=== PATIENT | female | born 1955 | race Caucasian/White ===

== ENCOUNTER 2017-09-04 05:55 | Observation (INO) | payer OTHER ==
[~2017-09-04] VITALS: Ht 167.6 cm; Wt 70.3 kg
--- OUTSIDE RECORDS SUMMARY | ~2017-09-04 | XMS | Clinical Summary ---
Demographics + + + | Address | [address] | | | [place] [address] | + + + | Home Phone | | + + + | Preferred Language | Unknown | + + + | Marital Status | | + + + | Episcopal Affiliation | Unknown | + + + | Race | White | + + + | Ethnic Group | or | + + + Author + + + | Author | NON REVENUE LOCATIONS | + + + | Organization | NON REVENUE LOCATIONS | + + + | Address | Unknown | + + + | Phone | Unavailable | + + + Support + + +---------+ + | Name | Relationship | Address | Phone | + + +---------+ + | Deon Workman | ECON | Unknown | | + + +---------+ + Care Team Providers + +------+ + | Care Account Management Specialist Name | Role | Phone | + +------+ + PP | Unavailable | + +------+ + Source Comments SHANNAN is fully live on both [facility] and [facility] Allergies + + + + + + | Active Allergy | Reactions | Severity | Noted | Comments | | | | | Date | | + + + + + + | Codeine | Hives, Edema | Medium | 06/08/20 | | | | | | 10 | | + + + + + + Current Medications + + +--------+---------+------+------+-------+ | Prescription | Sig. | Disp. | Refills | Star | End | Statu | | | | | | t | Date | s | | | | | | Date | | | + + +--------+---------+------+------+-------+ | triamcinolone | by Topical route | 15 g | 0 | 01/1 | | Activ | | acetonide 0.5 % | three times daily. | | | 9/20 | | e | | Topical Cream | Apply thin film to | | | 11 | | | | | affected areas. | | | | | | + + +--------+---------+------+------+-------+ Active Problems Not on file Family History + + +------+ + | Medical History | Relation | Name | Comments | + + +------+ + | Arthritis | Sister | | Osteo (bad | + + +------+ + + +------+ + + | Relation | Name | Status | Comments | + +------+ + + | Father | | | arthritis | | | | (Age | | | | | 70) | | + +------+ + + | Sister | | | | + +------+ + + Social History + +-------+ +--------+------+ | Tobacco Use | Types | Packs/Day | Years | Date | | | | | Used | | + +-------+ +--------+------+ | Never Smoker | | | | | + +-------+ +--------+------+ + +---+---+---+ | Smokeless Tobacco: | | | | | Never Used | | | | + +---+---+---+ + + +---------+ + | Alcohol Use | Drinks/We | oz/Week | Comments | | | ek | | | + + +---------+ + | Yes | | | 1 glass a wine a night | + + +---------+ + + + + | Sex Assigned at | Date Recorded | | | | + + + | Not on file | | + + + Last Filed Vital Signs + + + + | Vital Sign | Reading | Time Taken | + + + + | Blood Pressure | 118/80 | 07/18/2010 11:41 AM PST | + + + + | Pulse | 72 | 07/18/2010 11:41 AM PST | + + + + | Temperature | 37.2 C (99 F) | 07/18/2010 11:41 AM PST | + + + + | Respiratory Rate | 16 | 06/19/2010 9:23 AM PST | + + + + | Oxygen Saturation | - | - | + + + + | Inhaled Oxygen | - | - | | Concentration | | | + + + + | Weight | 71.2 kg (157 lb) | 07/18/2010 11:41 AM PST | + + + + | Height | 170.2 cm (5' 7") | 06/19/2010 9:23 AM PST | + + + + | Body Mass Index | 24.59 | 07/18/2010 11:41 AM PST | + + + + Plan of Treatment + + + + + | Health Maintenance | Due Date | Last Done | Comments | + + + + + | CERVICAL CYTOLOGY | | | | | (PAP SMEAR) | 6 | | | + + + + + | MAMMOGRAM | | | | | | 6 | | | + + + + + | COLONOSCOPY | | | | | | 1 | | | + + + + + | CHOLESTEROL | | 06/08/2010 | | | SCREENING | 5 | | | + + + + + | INFLUENZA VACCINE | | | | | (FLU SHOT) | 7 | | | + + + + + Results Not on filefrom Last 3 Months
[~2017-09-04 05:55] MED LIST: DILAUDID4 MG PO; ESTRACE42.5 GM VAGINAL; GLUCOPHAGE XR500 MG PO; GLUCOPHAGE500 MG PO; MOTRIN IB200 MG PO; SENNA-DOCUSATE1 EAC1 PO; SUDAFED 12 HOU120 MG PO; SUDOGEST30 MG PO; VITAMIN D2000 UNI1 PO
--- NOTE | 2017-09-04 11:10 | NUR ---
09/04/17 1110 Yasemin Marie 1100-PATIENT ARRIVED TO PACU ON 8L MASK O2 SAT 100% PATIENT REACTIVE TO VOICE. DRESSING TO THROAT CDI. 1107-PATIENT ON 6L MASK O2 SAT 100% PATIENT AROUSES TO VERBAL STIMULI WHEN ASKED IF COMFORTABLE REPORTS "YES" WITH HEAD NOD.
--- NOTE | 2017-09-04 13:00 | NUR ---
PATIENT ARRIVED TO MS UNIT. DROWSY, EASILY AROU[place]ALE. NO C/O PAIN. DRESSING DRY AND INTACT. REPORT RECIEVED FROM PACU NURSE. WATER PITCHER FILLED.
--- NOTE | 2017-09-04 13:50 | NUR ---
PATIENT UP TO BATHROOM WITH ASSIST. VERY UNSTEADY AT THIS TIME, STATES SHE FEELS A LITTLE DIZZY WHEN SHE SAT UP. C/O MILD PAIN WHEN SHE FIRST SAT UP, "I CAN FEEL IT NOW, BUT I DON'T NEED ANYTHING." PAIN IS GONE NOW THAT SHE IS BACK RESTING IN BED. STATES SHE WOULD LIKE TO TAKE A NAP. HER SISTER LEFT THE ROOM BUT WILL BE BACK IN ABOUT AN HOUR. PATIENT TOLERATED LITTLE SIPS OF WATER. NO C/O NAUSEA AT THIS TIME. SHE DID RECIEVE PHENERGAN IN PACU. VS OBTAINED. PATIENT DENIES FURTHER NEEDS. CALL LIGHT IN REACH. DRESSING TO NECK IS A MEPILEX WHICH IS C/D/I. NO HEMATOMA FORMATION AT THIS TIME. NO C/O DYSPNEA. TRACH SET AT BEDSIDE.
--- NOTE | 2017-09-04 14:39 | NUR ---
PT IS RESTING IN BED WITH EYES CLOSED, RESPIRATIONS EVEN. NURSE RONI TOOK PT VITALS
--- NOTE | 2017-09-04 15:03 | NUR ---
PATIENT RESTING QUIETLY IN BED. NO DYSPNEA, NO PAIN OR NAUSEA. VS OBTAINED. PATIENT DENIES NEEDS. SCDS IN PLACE. IVF INFUSING W/O DIFFICULTY. WATER PITCHER REFILLED. MEPILEX STILL C/D/I. NO HEMATOMA NOTED. CALL LIGHT IN REACH. STILL DROWSY, BUT EASILY AROUSABLE.
--- NOTE | 2017-09-04 15:28 | NUR ---
ASSISTED PATIENT TO BATHROOM. VOIDED. BACK TO BED. DENIES PAIN. DRESSING STILL C/D/I. NO HEMATOMA NOTED. PATIENT EATING A JELLO. DENIES FURTHER NEEDS. CALL LIGHT IN REACH.
--- NOTE | 2017-09-04 17:28 | NUR ---
PATIENT UP TO BATHROOM WITH ASSIST. VOIDED. BACK TO BED. RATES PAIN 4/10, STATES IT IS INCISIONAL PAIN. 1 TAB PERCOCET ADMINISTERED. WILL ADMINISTER IBUPROFEN AFTER DINNER IF NEEDED. MEPILEX ON NECK IS C/D/I. STERISTRIPS UNDERNEATH A LITTLE BLOODY BUT THE DRAINAGE HAS NOT INCREASED SINCE SHE HAS BEEN HERE ON [facility]. VS OBTAINED. DINNER ORDERED. PATIENT DENIES NAUSEA AT THIS TIME. WATER PITCHER FILLED. DENIES FURTHER NEEDS. CALL LIGHT IN REACH.
--- NOTE | 2017-09-04 17:39 | NUR ---
PATIENT UP TO BATHROOM W/ 1 PERSON ASSIST. PATIENT C/O PAIN 4/10, PERCOCET ADMINISTERED. NO C/O OF NAUSEA. DRESSING IS CLEAN, DRY, INTACT. NO SHORTNESS OF BREATH, O2 SATS MAINTAINING IN MID TO HIGH 90'S ON ROOM AIR. DINNER ORDER PUT IN, PATIENT IS RESTING IN BED. CALL LIGHT IN REACH.
--- NOTE | 2017-09-04 17:50 | OR ---
[facility] [address] [facility] [place], [place] [address] Signed DATE OF OPERATION: 09/04/2017 SURGEON: Tamra Ann MD PREOPERATIVE DIAGNOSES: 1. 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 2. Right submandibular adenopathy. POSTOPERATIVE DIAGNOSES: 1. Follicular lesion of right thyroid lobe without papillary features or capsular invasion. Final pathology pending. 2. Right submandibular gland hypertrophy. PROCEDURES: 1. Right total thyroid lobectomy with isthmusectomy. 2. Right submandibular gland partial excision (separate incision). ANESTHESIA: General endotracheal. ANESTHESIOLOGIST: Angley Rey CRNA. INDICATION: This 62-year-old white woman is a patient of Dr. Rafat Ham. She was seen about a year ago with right thyroid nodule, which was asymptomatic. Fine-needle aspiration biopsy was undertaken at that time showing possible Hurthle cells. The patient was disinclined to operation without a definitive diagnosis. Repeat ultrasound was recommended. She more recently saw me with a right submandibular area enlargement treated by antibiotics. She had no stone in the submandibular gland duct and the swelling that she had receded quite markedly, though she still has a firm mass in the area approximately 2.5 cm in size. Her ultrasound was repeated recently showing the right thyroid lobe nodule to have increased to 22 mm in size from 20 mm and a fine-needle aspiration biopsy by me of the right submandibular mass showed a nondiagnostic cytology though mention was made of possible thyroid follicle cells. Obviously, this would be suggestive of possible primary thyroid cancer with metastatic disease to the right submandibular lymph node chain. Electronically Signed By: TAMRA ANN MD 09/04/17 1750 PATIENT NAME: LUANA BENITES OPERATIVE REPORT DATE OF : 57 REPORT #: [id number] PHYSICIAN: TAMRA ANN MD PCP: RAFAT HAM DO REPORT IS CONFIDENTIAL AND NOT TO BE RELEASED WITHOUT AUTHORIZATION [facility] [address] [place], [place] [address] Signed I have recommended right thyroid lobectomy, possible total thyroidectomy depending on frozen pathology as well as excision of better characterization of the right submandibular presumed lymph node or mass. The patient and her sister who attends to her understood the risks of bleeding, infection, recurrent or external laryngeal nerve injury, submandibular complications including lingual nerve injury or marginal mandibular branch of facial nerve injury. She definitely wants the submandibular mass to be removed as it is persistently uncomfortable and persistently present. Understanding all this, she wished to proceed. FINDINGS: The thyroid gland itself was of normal size. The nodule within the center portion was firm and rubbery. Total right thyroid lobectomy was accomplished with meticulous care including isthmusectomy. The mass within the central portion of the right lobe was incised by me after excision showing somewhat of a necrotic center. Frozen pathology by Dr. Avila Hancock showed the lesion to be a "follicular lesion" with no evidence of papillary structures and no sign of capsular invasion on initial evaluation. It is understood that final pathology is pending. As regard to the right submandibular lymph node, it was more likely submandibular gland itself. Meticulous care was taken in excising it and final pathology is pending. DESCRIPTION OF PROCEDURE: The patient was brought to the operating room, given a general endotracheal anesthetic. A shoulder roll was placed. The arms were placed at the side. position was maintained. Slight neck extension was noted. The neck and upper torso were prepared with a chlorhexidine solution and draped sterilely. A marking pen was used to shana natural skin lines of the anterior neck. Incision was made in a natural skin line with a #15 blade and dissection carried through the dermis sharply. Electrocautery was used for hemostasis. Superior and inferior flaps were developed. With meticulous care using blunt and electrocautery dissection. Gelpi retractors were placed and the midline strap muscles were incised longitudinally them at the midline. Dissection was undertaken on the right side using sharp and blunt dissection revealing the underlying thyroid lobe. The thyroid gland itself appeared of normal size. The palpable mass in the center portion of the right lobe was not hard, and there was no sign of regional adenopathy that could be told. Palpation in the superior aspect of the flap did not easily reach to the level of the mass in the submandibular area and further dissection in that area was deemed inadvisable. The superior pole of thyroid gland was bluntly exposed and individual ligation of superior polar vessels undertaken with 4-0 silk ties. The middle thyroidal veins were Electronically Signed By: TAMRA ANN MD 09/04/17 0758 PATIENT NAME: LUANA BENITES OPERATIVE REPORT DATE OF : 57 REPORT #: [id number] PHYSICIAN: TAMRA ANN MD PCP: RAFAT HAM DO REPORT IS CONFIDENTIAL AND NOT TO BE RELEASED WITHOUT AUTHORIZATION [address] [address] Signed similarly divided laterally and inferiorly as well. With meticulous care, the thyroid was rotated towards the midline with special attention to the posterior elements including the parathyroid glands, which were identified as well as recurrent nerve similarly identified. Where small vessels were located in the region of the recurrent nerve as it entered through the larynx, small clips were used in lieu of other methods for hemostasis. Ultimately, the thyroid lobe was completely freed from the posterior elements and the pretracheal space from the isthmus itself. Hemostats were applied to the isthmus on the left side and the parenchyma was divided. A 3-0 silk sutures were used to secure the thyroid parenchyma. Photographs were taken throughout. The specimen was bivalved by me and the nodule in question appeared to have necrosis in the center portion. This sent for frozen pathology and frozen pathology demonstrated a follicular lesion of the thyroid with no evidence of papillary elements and no obvious invasion of the capsule itself. Irrigation was undertaken in the area and hemostasis assured. Some Silvano hemostatic agent was applied to the posterior aspect where the vessels had been divided. The midline strap muscles were reapproximated with interrupted 2-0 Vicryl as was the platysmal layer and skin closed with a running subcuticular 3-0 Vicryl. The patient's head was turned slightly to the left. A natural skin crease directly over the submandibular area with palpable presumed lymph node was located, was marked and a small incision made in the area. Dissection was carried through the subcutaneous tissue sharply and the platysmal layers, which are much thicker in this area were divided longitudinally exposing the deeper fascia of the neck. Palpation of the submandibular mass was undertaken and using primarily blunt dissection, it was ultimately encountered. Rather than being a lymph node, it appeared more likely actually to be submandibular gland itself. Meticulous care was taken to stay on the capsule of the glandular lesion and it was dissected free quite typical of formal submandibular gland excision. A dominant arterial vessel was noted in the lateral aspect, which was secured with 4-0 silk ties and ultimately the mass was excised entirely. It measured approximately 3 cm or so in length and 2 cm in width. The depth of the wound was completely free of any offending mass. Irrigation was undertaken. Hemostasis assured. The platysmal layers were reapproximated with interrupted 2-0 Vicryl and the skin closed with running subcuticular 3-0 Vicryl. Steri-Strips were applied to both wounds. The patient was ultimately extubated and transferred to recovery room in good condition having suffered no complication. Sponge, needle, and instrument counts were reported as correct x3. Tamra Ann MD Electronically Signed By: TAMRA ANN MD 09/04/17 1750 PATIENT NAME: LUANA BENITES OPERATIVE REPORT DATE OF : 57 REPORT #: [id number] PHYSICIAN: TAMRA ANN MD PCP: RAFAT HAM DO REPORT IS CONFIDENTIAL AND NOT TO BE RELEASED WITHOUT AUTHORIZATION [address] [address] Signed MARK/[email or web address] /[id number] cc: Rafat Ham DO Copies: RAFAT HAM DO ~ Electronically Signed By: TAMRA ANN MD 09/04/17 1750 PATIENT NAME: LUANA BENITES KATIE OPERATIVE REPORT DATE OF : 57 REPORT #: [id number] PHYSICIAN: TAMRA ANN MD PCP: RAFAT HAM DO REPORT IS CONFIDENTIAL AND NOT TO BE RELEASED WITHOUT AUTHORIZATION
--- NOTE | 2017-09-04 18:00 | NUR ---
DR. ANN IN TO SEE PATIENT.
--- NOTE | 2017-09-04 19:00 | NUR ---
BEDSIDE REPORT RECEIVED FROM JACQUELINE TAMAYO. PT AWAKE, HOB ELEVATED. INCISION CLEAN DRY AND INTACT. PT 97% ON 1L OXYGEN, REQUESTING TO WEAR OXYGEN AT THIS TIME, DENIES SOB. PT RATES PAIN 0/10. SCDS ON. CALL LIGHT IN REACH.
--- NOTE | 2017-09-04 19:51 | NUR ---
ROUNDED CHARGE. PATIENT IS RESTING IN BED. PATIENT DENIES ANY COMMENTS, QUESTIONS, OR CONCERNS. NO NEEDS NOTED. CALL LIGHT IN REACH.
--- NOTE | 2017-09-04 20:02 | NUR ---
VITALS AND I&OS DONE AND CHARTED. BEDSIDE TABLE AND CALL LIGHT WITHIN REACH. FRESH WATER GIVEN. PT NEEDS NOTHING ELSE AT THIS TIME.
--- NOTE | 2017-09-04 21:30 | NUR ---
PT ASSESSMENT COMPLETE. INCISION CLEAN DRY AND INTACT, NO HEMATOMA NOTED. PT RATES PAIN 5/10 AT INCISION SITE WITH SPEAKING, ADMINISTERED PRN PERCOCET 1 TAB. SBA TO RESTROOM FOR 600 ML VOID. BOWEL TONES ACTIVE. PT DENIES NAUSEA, DENIES ITCHING. CSM INTACT BUE, BLE. SCDS ON. IV WNL SALINE LOCKED. CALL LIGHT IN REACH, LIGHTS OFF IN ROOM. DOOR SHUT PER PT REQUEST.
--- NOTE | 2017-09-04 22:53 | NUR ---
GOT PT A WARM BLANKET AND SHUT HER DOOR. PT NEEDS NOTHING ELSE AT THIS TIME. BEDSIDE TABLE AND CALL LIGHT WITHIN REACH.
--- NOTE | 2017-09-04 23:39 | NUR ---
HELPED PT GO TO THE BATHROOM AND BACK TO BED. BEDSIDE TABLE AND CALL LIGHT WITHIN REACH. PT NEEDS NOTHING ELSE AT THIS TIME.
--- NOTE | 2017-09-05 00:13 | NUR ---
CHECKED ON PT, PT SLEEPING, AWAKENS TO DOOR OPENING, RATES PAIN 4/10 AT INCISION. DRINKING SIPS OF WATER. SPO2 99% ON 2L OXYGEN BY NC PER RT ADMINISTRATION. PT HAS NO REQUESTS AT THIS TIME, WOULD LIKE WOKEN UP FOR PAIN MEDICATION, CALL LIGHT IN REACH, LIGHTS OFF IN ROOM.
--- NOTE | 2017-09-05 02:04 | NUR ---
ADMINISTERED PRN PERCOCET, MOTRIN FOR 6/10 REPORTED PAIN AT INCISION, TIGHTNESS AND SORE THROAT. PT 99% ON 2L OXYGEN. PT CONTINUES TO REQUEST OXYGEN DESPITE EDUCATION. HOB IS ELEVATED. INCISION CLEAN DRY AND INTACT, NO BRUISING NOTED. SBA TO RESTROOM FOR VOID. PT GIVEN ICE WATER, BACK IN BED, SCDS ON. LIGHTS OFF IN ROOM, CALL LIGHT IN REACH.
--- NOTE | 2017-09-05 02:08 | NUR ---
VITALS DONE AND CHARTED. BEDSIDE TABLE AND CALL LIGHT WITHIN REACH.
--- NOTE | 2017-09-05 04:44 | NUR ---
PT APPEARS TO BE SLEEPING, EYES CLOSED, VISIBLE CHEST RISE, LIGHTS OFF IN ROOM.
--- NOTE | 2017-09-05 05:18 | NUR ---
PT SLEPT WELL THROUGHOUT SHIFT. PAIN WELL CONTROLLED WITH PRN PERCOCET AND IBUPROFEN. INCISION SITE CLEAN DRY AND INTACT WITH NO BRUISING NOTED. PT SATURATING WELL ON ROOM AIR, REQUESTING TO WEAR 2L OXYGEN FOR COMFORT W SLEEP PER RT. HOB ELEVATED, SCDS ON THROUGHOUT SHIFT.
--- NOTE | 2017-09-05 05:42 | NUR ---
HELPED PT TO THE BATHROOM. VITALS DONE AND CHARTED.
--- NOTE | 2017-09-05 05:45 | NUR ---
PT RATES PAIN 6/10 AT THIS TIME, ADMINISTERED PRN PERCOCET X 1 TAB. PT GIVEN JELLO, PUDDING TO TAKE WITH PAIN PILL. SBA TO RESTROOM FOR VOID. BACK IN BED, SCDS ON, CONTINUOUS PULSE OX ON. PT ON ROOM AIR, SPO2 97%. INCISIONS CLEAN DRY AND INTACT, NO BRUISING NOTED. REFILLED ICE WATER, CALL LIGHT IN REACH, BREAKFAST ORDER TAKEN AT THIS TIME.
--- NOTE | 2017-09-05 07:23 | NUR ---
PT GIVEN FRESH ICE WATER AND A CUP OF HOT WATER FOR TEA. PT HAS NO OTHER REQUESTS AT THIS TIME. INFORMED PT TO CALL IF SHE THINKS OF ANYTHING. CALL LIGHT IS IN REACH.
--- NOTE | 2017-09-05 07:30 | NUR ---
REPORT RECEIVED FROM LEONIDAS PHILLIPS, PATIENT IS SITTING UP IN BED SIPPING ON SOME TEA. PATIENT DENIES ANY TROUBLE WITH SHORTNESS OF BREATH OR SWALLOWING AT THIS TIME. PATIENTS INCISION X2 TO HER NECK INTACT WITH STERI STRIPS.
--- NOTE | 2017-09-05 09:01 | NUR ---
PATIENT HAS NO C/O PAIN OR TROUBLE WITH SWALLOWING AT THIS TIME. SHE REMAINS ON RA. SHE HAS NO QUESTIONS OR CONCERNS. WATER FILLED UP FOR HER AND SHE FINISHED HER BREAKFAST WITH A LITTLE TROUBLE WITH HER EGGS.
--- NOTE | 2017-09-05 09:35 | NUR ---
DOCTOR MARISSA IN TO SEE THE PATIENT AT THIS TIME, PATIENT WILL BE D/C TO HOME TODAY. SHOWER IN THE AM.
[2017-09-05] MEDS ORDERED: OXYCODON-ACETA1 EAC2 PO (09:40)
[2017-09-05] MEDS ORDERED: MOTRIN IB200 MG PO (09:41)
[2017-09-05] MEDS ORDERED: SUDOGEST30 MG PO (09:58)
--- NOTE | 2017-09-05 09:58 | NUR ---
PT COMPLAINING OF 5/10 PAIN AT SURGICAL SITE. ADMINISTERED PRN PERCOCET. REFILLED ICE WATER. TOILETING OFFERED. PT AMBULATED TO TOILET WITH STAND BY ASSIST. TOILETED INDEPENDENTLY. PT AMBULATED BACK TO BED. CALL LIGHT IN REACH.
[2017-09-05] MEDS ORDERED: DAILY VALUE1 EACH PO (10:00)
[2017-09-05] MEDS ORDERED: BENADRYL25 MG PO (10:01)
[2017-09-05] MEDS ORDERED: PROBIOTIC1 EAC1 PO (10:01)
[2017-09-05] MEDS ORDERED: COLACE100 MG PO (10:21)
--- NOTE | 2017-09-05 10:28 | NUR ---
VS AND I&O'S TAKEN AND DOCUMENTED. PT STATES SHE HAS NO NEEDS AT THIS TIME. INFORMED PT TO CALL IF SHE THINKS OF ANYTHING. CALL LIGHT IS IN REACH.
--- NOTE | 2017-09-05 10:33 | NUR ---
PATIENT REQUESTING A STOOL SOFTNER AT THIS TIME, DOCTOR MARISSA CALLED AND JACKIE ORDERED 100MG FOR NOW AND THEN A SCRIPT WRITTEN FOR HOME. D/C PAPERS UPDATED.
[2017-09-05] MEDS ORDERED: MIRALAX17 GM PO (11:14)
--- NOTE | 2017-09-05 11:30 | NUR ---
PATIENT GIVEN D/C INSTRUCTIONS QUESTIONS ANSWERED AT THIS TIMEM, SCRIPTS GIVEN TO THE PATIENT AND SHE WAS WHEELED OUT WITH HER SISTER.
[2017-10-29] MEDS ORDERED: SYNTHROID100 MCG PO (11:26)
== END 2017-09-05 11:30 | disposition home or self-care (01) ==
LOC: DS 05:55 → MS 11:35 → DS 12:59 → MS 12:59
PROVIDERS: ADMIT Surgery
PROC: 0GTH0ZZ Resection of Right Thyroid Gland Lobe, Open Approach (ICD-10-PCS; principal; 2017-09-04 06:45)
PROC: 0CBG0ZZ Excision of Right Submaxillary Gland, Open Approach (ICD-10-PCS; 2017-09-04 06:45)
DX: C73 Malignant neoplasm of thyroid gland (principal); K11.23 Chronic sialoadenitis; Z79.899 Other long term (current) drug therapy; Z86.19 Personal history of other infectious and parasitic diseases; Z88.5 Allergy status to narcotic agent; Z88.8 Allergy status to other drugs, medicaments and biological substances
CPT/HCPCS: 00320; 94762; 96374; 96376; G0378; J0690; J1100; J1885; J2250; J2405; J2550; J2704; J3010; J7120

== ENCOUNTER 2017-10-28 05:55 | Observation (INO) | payer OTHER ==
[~2017-10-28] VITALS: Ht 167.6 cm; Wt 69.0 kg
--- OUTSIDE RECORDS SUMMARY | ~2017-10-28 | XMS | Clinical Summary ---
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
[~2017-10-28 05:55] MED LIST changes: +BENADRYL25 MG PO; +COLACE100 MG PO; +DAILY VALUE1 EACH PO; +MIRALAX17 GM PO; +OXYCODON-ACETA1 EAC2 PO; +PROBIOTIC1 EAC1 PO
--- NOTE | 2017-10-28 22:06 | OR ---
[facility] [address], [place] [address] Signed DATE OF OPERATION: 10/28/2017 SURGEON: Tamra Ann MD PREOPERATIVE DIAGNOSES: 1. Multicentric right thyroid papillary carcinoma, status post right thyroid lobectomy with isthmusectomy (September 04, 2017). 2. Status post right submandibular gland incomplete excision on September 04, 2017 with persistent right submandibular gland symptomatic nodularity. POSTOPERATIVE DIAGNOSES: 1. Multicentric right thyroid papillary carcinoma, status post right thyroid lobectomy with isthmusectomy (September 04, 2017). 2. Status post right submandibular gland incomplete excision on September 04, 2017 with persistent right submandibular gland symptomatic nodularity. PROCEDURES: 1. Completion left thyroid lobectomy (prolonged complicated difficult). 2. Autotransplant of parathyroid gland to left sternocleidomastoid muscle. ANESTHESIA: General endotracheal; Tamra Paz CRNA and local 0.25% Marcaine with epinephrine 8 mL. INDICATION: This 62-year-old white woman is a patient of Dr. Rafat Ham. 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 The submandibular gland swelling and mass was new and originally markedly enlarged, but ultimately abated in size. A repeat ultrasound showed the thyroid nodule on the right, having grown from 20 to 22 mm in the submandibular lesion of uncertain etiology. A biopsy was performed of the right submandibular mass, which showed possible follicular cells. On that basis, she underwent a right thyroid lobectomy with isthmusectomy on September 04, 2017 as well as through a separate excision of a submandibular nodule and possibly this may represent metastatic thyroid cancer. Frozen pathology on the thyroid could not confirm cancer and a completion thyroidectomy was not undertaken. Final pathology of the submandibular gland showed chronic inflammation of the submandibular gland tissue. No evidence of thyroid metastatic disease. The thyroid lobe on the right with isthmus showed a multicentric papillary thyroid carcinoma, considered to have a "positive margin." Electronically Signed By: TAMRA ANN MD 10/28/17 2206 PATIENT NAME: LUANA BENITES OPERATIVE REPORT DATE OF : 57 REPORT #: [id number] PHYSICIAN: TAMRA ANN MD PCP: RAFAT HAM DO REPORT IS CONFIDENTIAL AND NOT TO BE RELEASED WITHOUT AUTHORIZATION [facility] [address] [place] [id number] Signed She has been seen by Dr. Nice regarding submandibular gland abnormality and he has recommended re-exploration, excision more completely of it. Additionally, completion thyroidectomy was deemed appropriate for the remaining left thyroid lobe as there may be multifocal disease including the left lobe. The patient understands the risks of both operations including, but not limited to bleeding, infection, cosmetic deformity, need for additional treatment, nerve injury including recurrent laryngeal nerve, lingual nerve, marginal mandibular branch of the facial nerve or even hypoglossal nerve. Understanding this, she wished to proceed. FINDINGS: The submandibular gland was excised by Dr. Nice. I assisted him with that. That is carried under a separate dictation. Completion left thyroid lobectomy was undertaken following the submandibular gland excision. The inflammation remained in the neck despite having not explored the area beneath the left strap muscles was still quite markedly inflamed. This made the procedure rather prolonged, complicated, and difficult. It was accomplished safely, however. Identification of the left recurrent laryngeal nerve was noted and was well preserved. An inferior pole parathyroid gland was excised with the left thyroid lobe, which could not be avoided given its dense incorporation to the thyroid gland from scar tissue. That tissue was then autotransplanted to the left sternocleidomastoid muscle. The area was marked with four clips for future identification should the need arise. The amount of remaining thyroid tissue is minimal clinically. DESCRIPTION OF PROCEDURE: The patient was brought to the operating room and given a general endotracheal anesthetic. A David catheter was placed. She received preoperative antibiotic Ancef. Sequential compression device stockings were used as well. The patient was positioned for a submandibular gland excision first. The head was turned to the left, her arms at the side. The neck was prepared fully and operation performed by Dr. Nice with my assistance. That will be noted under separate dictation. At the completion of the submandibular gland excision, a fluff gauze was placed to the submandibular incision site as well as an OpSite. The body was repositioned position with a slight shoulder roll with neck extension. The neck was then prepared with a chlorhexidine solution and draped sterilely. The previous incision from thyroidectomy was used. The transverse incision was well positioned in a skin crease. Dissection was carried through the skin and through the platysmal layer with needlepoint electrocautery. Superior and inferior flaps were developed using blunt electrocautery Electronically Signed By: TAMRA ANN MD 10/28/17 2206 PATIENT NAME: LUANA BENITES OPERATIVE REPORT DATE OF : 57 REPORT #: [id number] PHYSICIAN: TAMRA ANN MD PCP: RAFAT HAM DO REPORT IS CONFIDENTIAL AND NOT TO BE RELEASED WITHOUT AUTHORIZATION [facility] [address], [place] [address] Signed dissection. The marked inflammation was noted, even though we are two months since operation essentially. The midline strap muscles were indistinguishable from each other, however, mindful of the position of the midline, the avascular plane and the central midline was identified and the strap muscles elevated on the left side. They were markedly thickened and tenacious as might be expected. With great persistence of meticulous care, the strap muscle was ultimately lifted away from the upper pole of the left thyroid gland. Further dissection laterally was undertaken and small clips were used to secure the middle thyroidal veins. The upper pole was dissected free first. Care was taken to individually ligate or clip or divide the superior polar vessel so as to minimize chances of injury to the external laryngeal nerve. Dissection was carried more inferiorly and the lower pole was similarly mobilized and ultimately thyroid mobilized from lateral to medial. This was very challenging on the basis of inflammation, though I had not recalled actually exploring the left gland at the original operation. Nevertheless, with considerable care, the thyroid gland was ultimately mobilized to the midline. The posterior elements could be identified including the left recurrent laryngeal nerve. It was well out of harm's way. Clips were the most appropriate means of hemostasis for small vessels rather than ties on the basis of fibrosis of the strap muscles and so forth. Ultimately, the thyroid was completely freed from the trachea. A lower pole parathyroid gland was found to be contiguous with the scar tissue around the thyroid tissue itself and was freed from the thyroid and plans made for autotransplantation. Irrigation was undertaken and there appeared to be good hemostasis. A small Grace drain was placed in the depths of the wound and the midline strap muscles were reapproximated with interrupted 2-0 Vicryl suture. Dissection laterally allowed for identification of left sternocleidomastoid muscle dominantly over the medial head. This was incised with a hemostat. The parathyroid gland was minced with a 15 blade and placed into the sternocleidomastoid pocket. The pocket was then closed with interrupted 3-0 Vicryl and the site was then marked with four clips juxtaposed to each other. The platysmal layer was then reapproximated with interrupted 3-0 Vicryl. The skin closed with interrupted 4-0 Vicryl. Steri-Strips were applied and the [place] drain which emanated from the central portion was allowed to exit the central portion of the wound. The dressing over the submandibular wound was then changed to a fluff gauze and a dressing used to affix the gauze in place. The patient was ultimately extubated without complication and was taken to the recovery room in good condition having suffered no complications. Sponge, needle, and instrument counts were correct x3. Electronically Signed By: TAMRA ANN MD 10/28/17 2206 PATIENT NAME: LUANA BENITES OPERATIVE REPORT DATE OF : 57 REPORT #: [id number] PHYSICIAN: TAMRA ANN MD PCP: RAFAT HAM DO REPORT IS CONFIDENTIAL AND NOT TO BE RELEASED WITHOUT AUTHORIZATION [facility] [address] [place] [id number] Signed Tamra Ann MD JM/MODL /[id number] cc: MD Rafat Garcia DO Copies: MARK NICE MD, KENT DO ~ Electronically Signed By: TAMRA ANN MD 10/28/17 2206 PATIENT NAME: LUANA BENITES KATIE OPERATIVE REPORT DATE OF : 57 REPORT #: [id number] PHYSICIAN: TAMRA ANN MD PCP: RAFAT HAM DO REPORT IS CONFIDENTIAL AND NOT TO BE RELEASED WITHOUT AUTHORIZATION
[2017-10-29] MEDS ORDERED: OXYCODON-ACETA1 EAC2 PO (11:12)
[2017-10-29] MEDS ORDERED: IBUPROFEN600 MG PO (11:12)
[2017-10-29] MEDS ORDERED: MAPAP325 MG PO (11:13)
[2017-10-29] MEDS ORDERED: ACETAMINOP80 MG/0.8 PO (11:26)
[2017-10-29] MEDS ORDERED: SYNTHROID100 MCG PO ×2 (11:26)
--- NOTE | 2017-12-16 14:26 | OR ---
[facility] [address] [place], [place] [address] Signed DATE OF OPERATION: 10/28/2017 SURGEON: Rush Nice MD PREOPERATIVE DIAGNOSIS: Right submandibular mass. POSTOPERATIVE DIAGNOSIS: Right submandibular mass. PROCEDURE: Excision of the right submandibular gland. COTTON DISPATCHER: Roque Medley MD PREOP HISTORY: Ms. Workman is a 62-year-old lady who underwent a thyroid lobectomy and a right submandibular gland biopsy several weeks ago. The thyroid turned out to be cancer and there was benign pathology in the submandibular gland. Since the surgery, she has had swelling and pain in the submandibular space. She is being taken back to the OR for Dr. Medley to perform a completion thyroidectomy and I will perform with him a completion right submandibular gland excision. OPERATIVE PROCEDURE AND FINDINGS: After informed consent, the patient was taken to the operating room and placed in the supine position where general orotracheal anesthesia was induced. The patient and the procedure were verified. Head and neck turned to the left. The right submandibular area was examined. There was a nodule about 2 cm in the right submandibular space. The incision was well healed. The right neck was sterilely prepped and draped. An incision somewhat inferior to the previous incision was drawn on the skin in a transverse direction. A 1% lidocaine with epinephrine was injected. An incision was then made through skin and subcutaneous tissue subplatysma, dissecting down to find the remnant of the submandibular gland. The gland was dissected free. There was lot of scar tissue. Vessels were clamped, divided, and tied with 3-0 and 4-0 silk. The mylohyoid was scarred down, but it was identified, retracted medially and the submandibular duct identified. This was clamped, divided, and tied with 3-0 silk. The lingual nerve was identified. A branch of the gland was clamped, divided and tied with 3-0 silk. The remnant of the gland was divided, removed and sent to pathology in formalin. Bleeding was controlled afterwards and lavaged with saline. Hemostasis verified. The wound was Electronically Signed By: RUSH NICE MD 12/16/17 1426 PATIENT NAME: LUANA WORKMAN OPERATIVE REPORT DATE OF : 57 REPORT #: [id number] PHYSICIAN: RUSH NICE MD PCP: TOSHA HAM DO REPORT IS CONFIDENTIAL AND NOT TO BE RELEASED WITHOUT AUTHORIZATION [facility] [address] [place], [place] [address] Signed then closed over a quarter-inch [place] drain exiting mid wound with 4-0 interrupted Vicryl subcu and the platysmal layer subcu and then 5-0 running nylon on the skin. The drain was sutured into place, mid wound with 3-[address] Medley then took over his portion of the case, which he will dictate separately. COMPLICATIONS: No complications. DRAIN: Grace. BLOOD LOSS: Minimal. SPECIMEN: To pathology. Rush Nice MD GC/MODL /[id number] Copies: ~ Electronically Signed By: RUSH NICE MD 12/16/17 1426 PATIENT NAME: LUANA WORKMAN KATIE OPERATIVE REPORT DATE OF : 57 REPORT #: [id number] PHYSICIAN: RUSH NICE MD PCP: TOSHA HAM DO REPORT IS CONFIDENTIAL AND NOT TO BE RELEASED WITHOUT AUTHORIZATION
== END 2017-10-29 12:55 | disposition home or self-care (01) ==
LOC: DS 05:55 → MS 12:20 → DS 12:20 → MS 10-29 12:55
PROVIDERS: Otolaryngology; ADMIT Surgery
PROC: 0CTG0ZZ Resection of Right Submaxillary Gland, Open Approach (ICD-10-PCS; principal; 2017-10-28 06:45)
PROC: 0GTG0ZZ Resection of Left Thyroid Gland Lobe, Open Approach (ICD-10-PCS; 2017-10-28 06:45)
DX: C73 Malignant neoplasm of thyroid gland (principal); K11.23 Chronic sialoadenitis; J30.2 Other seasonal allergic rhinitis; R51 Headache; Z88.1 Allergy status to other antibiotic agents; Z88.5 Allergy status to narcotic agent; Z88.8 Allergy status to other drugs, medicaments and biological substances; Z79.899 Other long term (current) drug therapy
CPT/HCPCS: 00320; 36415; 82310; 96361; 96374; 96375; 96376; G0378; J0330; J0690; J1100; J1885; J2175; J2250; J2270; J2405; J2550; J2704; J2765; J3010; J7120

== ENCOUNTER 2020-09-12 16:31 | Emergency (ER) | payer OTHER ==
[~2020-09-12] VITALS: Ht 167.6 cm; Wt 63.5 kg
[~2020-09-12 16:31] MED LIST changes: +ACETAMINOP80 MG/0.8 PO; +IBUPROFEN600 MG PO; +MAPAP325 MG PO; +SYNTHROID100 MCG PO
[2020-09-12] MEDS ORDERED: LEVOTHYROXINE112 MC1 PO (18:02)
[2020-09-12] MEDS ORDERED: BUSPIRONE HCL7.5 MG PO (18:03)
== END 2020-09-12 18:12 | disposition home or self-care (01) ==
LOC: ED 16:31
DX: R03.0 Elevated blood-pressure reading, without diagnosis of hypertension (principal); Z88.5 Allergy status to narcotic agent; Z88.8 Allergy status to other drugs, medicaments and biological substances; Z88.1 Allergy status to other antibiotic agents; Z79.899 Other long term (current) drug therapy
CPT/HCPCS: 99283

== ENCOUNTER 2020-11-18 18:33 | Emergency (ER) | payer MEDICAID ==
[~2020-11-18] VITALS: Ht 170.2 cm; Wt 62.6 kg
[~2020-11-18 18:33] MED LIST changes: +BUSPIRONE HCL7.5 MG PO; +LEVOTHYROXINE112 MC1 PO
[2020-11-19] MEDS ORDERED: ULTRAM50 MG PO (00:43)
[2020-11-19] MEDS ORDERED: CEPHALEXIN500 MG PO (00:43)
== END 2020-11-19 01:28 | disposition home or self-care (01) ==
LOC: ED 18:33
DX: N12 Tubulo-interstitial nephritis, not specified as acute or chronic (principal); Z88.5 Allergy status to narcotic agent; Z88.8 Allergy status to other drugs, medicaments and biological substances; Z88.1 Allergy status to other antibiotic agents; Z79.899 Other long term (current) drug therapy; Z20.822 Contact with and (suspected) exposure to COVID-19
CPT/HCPCS: 51798; 71045; 74177; 80053; 81001; 85025; 87088; 99284-25; J0696; J1885; J2405; J7030; Q9967; U0003